=== PATIENT | female | born 1995 | race African-American/Black ===

== ENCOUNTER → 2020-08-07 | Outpatient (CLI) | payer SELFPAY ==
--- NOTE | 2020-08-07 15:40 | RADIOLOGY REPORT (SQ) ---
EXAM DESCRIPTION: U/S OB 14+ TRNABD 1GES W/O DOP IMAGES COMPLETED DATE/TIME: 08/07/2020 2:48 pm REASON FOR STUDY: ANATOMY US Z34.83 ENCOUNTER FOR SUPRVSN OF NORMAL , THIRD TRIM COMPARISON: None. TECHNIQUE: Static and Dynamic grayscale imaging performed of gravid uterus using transabdominal appr oach. Additional selected color Doppler and spectral images recorded. All stored on PACS. LIMITATIONS: None. FINDINGS: FETUSES SEEN:1 EGA: 29 weeks 4 days Calculated using BPD,FL,HC,AC documented on images. No discrepancy with clinica l dates. ANKUR: 10/19/2020 EFW: 1,303 grams PERCENTILE: 35 SHIRA: 15.4 PLACENTA: Anterior. GRADE: I PRESENTATION: Breech. ANATOMY: HEART RATE: 137 beats per minute. FOUR CHAMBER HEART: Visualized. THREE VESSEL CORD: Yes. CORD INSERTION: Visualized. KIDNEYS AND BLADDER: Visualized. Appear normal. STOMACH: Visualized. Appears normal. SPINE: Normal as visualized. BRAIN AND LATERAL VENTRICLES: Visualized. Appear normal. OTHER: No other significant finding. MATERNAL ADNEXA: Maternal ovaries not visualized. CERVICAL LENGTH: 2.9 cm. Closed. OTHER: No other significant finding. IMPRESSION: LIVING INTRAUTERINE . ESTIMATED GESTATIONAL AGE 29 weeks 4 days. NO VISUALIZED ANOMALIES. Trimester of : Third trimester - 28 weeks to delivery. TECHNICAL DOCUMENTATION: JOB ID: [id number] 2010 [email or web address]- All Rights Reserved Reading location - IP/workstation name: [email or web address]
== END ==
LOC: RAD 14:18
PROVIDERS: ATTEND Midwife
DX: Z34.83 Encounter for supervision of other normal pregnancy, third trimester (principal)
CPT/HCPCS: 76805

== ENCOUNTER 2020-09-14 11:18 | Outpatient (CLI) | payer MEDICAID ==
[2020-09-14 12:03] LABS: BACTERIA (WET MOUNT) 4+ BACTERIA SEEN; EPITHELIALS (WET MOUNT) 4+ EPITHELIALS SEEN; RBCS (WET MOUNT) FEW RBCS SEEN; T.VAGINALIS (WET MOUNT) NO TRICHOMONAS SEEN; WBCS (WET MOUNT) 3+ WBCS SEEN; YEAST (WET MOUNT) NO YEAST SEEN
[2020-09-14 12:14] LABS: APPEARANCE,URINE SLIGHTLY-CLOUDY; BILIRUBIN,URINE NEGATIVE (NEGATIVE); COLOR,URINE STRAW; GLUCOSE, URINE NEGATIVE (NEGATIVE); KETONES,URINE NEGATIVE (NEGATIVE); LEUKOCYTE ESTERASE,URINE MODERATE (NEGATIVE); NITRITE,URINE NEGATIVE (NEGATIVE); PROTEIN,URINE NEGATIVE (NEGATIVE); URINE SPECIFIC GRAVITY 1.009; UROBILINOGEN,URINE NEGATIVE mg/dL (<2.0)
[2020-09-14 12:31] LABS: URINE AMPHETAMINES SCREEN NEGATIVE; URINE BARBITURATES SCREEN NEGATIVE; URINE BENZODIAZEPINES SCREEN NEGATIVE; URINE COCAINE SCREEN NEGATIVE; URINE METHADONE SCREEN NEGATIVE; URINE PHENCYCLIDINE SCREEN NEGATIVE
--- NOTE | 2020-09-14 12:35 | RADIOLOGY REPORT (SQ) ---
EXAM DESCRIPTION: U/S OB LIMITED IMAGES COMPLETED DATE/TIME: 09/14/2020 12:13 pm REASON FOR STUDY: vaginal spotting, Fluid, pres, growth, placenta COMPARISON: None. TECHNIQUE: Limited transabdominal grayscale ultrasound for evaluation of specific requested obstetri scott parameters. LIMITATIONS: None. FINDINGS: EGA: 35 week 2 day. ANKUR: 10/17/2020. EFW: 2397 g. PERCENTILE: 31%. CERVICAL LENGTH: 2.5 cm. Closed. SHIRA: 22.1 cm. LVP: 8.2 cm. FHR: 127 beats per minute. PRESENTATION: Cephalic. PLACENTA: Anterior. ANATOMY: Not assessed OTHER: No other significant findings. IMPRESSION: LIMITED OBSTETRICAL ULTRASOUND WITH MEASURED PARAMETERS DELINEATED ABOVE. Trimester of : Third trimester - 28 weeks to delivery. TECHNICAL DOCUMENTATION: JOB ID: [id number] [employer]- All Rights Reserved Reading location - IP/workstation name: [email or web address]
[2020-09-14 12:39] LABS: URINE MARIJUANA (THC) SCREEN UNCONFIRMED POSITIVE
[2020-09-14] MEDS ORDERED: BETAMET ACET/BETAMET NA INJ 6 MG/1 ML ONE (13:21)
[2020-09-14] MEDS ORDERED: BETAMET ACET/BETAMET NA INJ 6 MG/1 ML IM ONE (13:22)
--- NOTE | 2020-09-14 13:31 | PDOC PROGRESS REPORT ---
Subjective Date:: 09/14/20 Subjective:: spotting once this am with wiping when she woke up, rare B-H ctx, no bleeding noted on pad, +FM, no LOF Reason For Visit: LABOR CHECK Physical Exam - Physical Exam Vital Signs: Intake & Output 09/13/20 09/14/20 09/15/20 06:59 06:59 06:59 Weight 62 kg General appearance: PRESENT: no acute distress, well-developed, well-nourished Head exam: PRESENT: atraumatic, normocephalic Respiratory exam: PRESENT: chest wall tenderness, symmetrical, unlabored Cardiovascular exam: PRESENT: RRR. ABSENT: diastolic murmur, rubs, systolic murmur Pulses: PRESENT: normal dorsalis pedis pul, +2 pedal pulses bilateral GI/Abdominal exam: PRESENT: normal bowel sounds, soft. ABSENT: distended, guarding, mass, organolmegaly, rebound, tenderness Rectal exam: PRESENT: deferred Extremities exam: PRESENT: full ROM. ABSENT: calf tenderness, clubbing, pedal edema Neurological exam: PRESENT: alert, awake, oriented to person, oriented to place, oriented to time, oriented to situation, CN II-XII grossly intact. ABSENT: motor sensory deficit Psychiatric exam: PRESENT: appropriate affect, normal mood. ABSENT: homicidal ideation, suicidal ideation Skin exam: PRESENT: dry, intact, warm. ABSENT: cyanosis, rash - Obstetrical Exam Effacement (%): 25 - posterior Station: -4 Tender: No Adhexa: normal Result Laboratory Results: 09/14/20 11:29 Urine Color STRAW Urine Appearance SLIGHTLY-CLOUDY Urine pH 7.0 Ur Specific [place] 1.009 Urine Protein NEGATIVE Urine Glucose (UA) NEGATIVE Urine Ketones NEGATIVE Urine Blood SMALL H Urine Nitrite NEGATIVE Ur Leukocyte Esterase MODERATE H Urine WBC (Auto) 8 Urine RBC (Auto) 13 Impressions: Obstetrics Ultrasound 09/14/20 11:28 IMPRESSION: LIMITED OBSTETRICAL ULTRASOUND WITH MEASURED PARAMETERS DELINEATED ABOVE. Trimester of : Third trimester - 28 weeks to delivery. Status: Imported from PACS Assessment & Plan - Diagnosis (1) History of delivery, currently in third trimester Is this a current diagnosis for this admission?: Yes Plan: cvx ft/th/hi/post/soft H/o 36ks then 32wks then 38wks delivery (38wks delivery was on eduin) She is followed by [facility] and has not been see olrna [facility] yet. She is not on ed[place] or Prometrium this She has not had an appt in 6 weeks Instructed to call thursday for TROB appt. Prometrium Rx given. Since h/o 2 babies and not on prometrium or eduin - will give steroids today and f/u tomorr for steroids. Wet prep neg US noted vertex and approp growth. Possible poly with SDP 8.2cm - f/u with [facility] next week. Denies SROM Reassuring FWB and not in labor. FKC and labor precautions reviewed. Pt instructed to return if spotting again. GC/CT negative Discharge to home with f/u in office next week. Repeat BMZ tomorrow (2) Cannabis abuse without complication Is this a current diagnosis for this admission?: Yes Plan: patient safety tech entered due to positive THC. Pt reports use of gummies. - Time Time Spent with patient: 15-24 minutes Smoking Cessation Education: 3 to 10 minutes Medications reviewed and adjusted accordingly: Yes Anticipated discharge: Home Anticipated DC Timeframe: Other - Once GC/CT returns. - Inpatient Certification Based on my medical assessment, after consideration of the patient's comorbidities, presenting symptoms, or acuity I expect that the services needed warrant INPATIENT care.: No I certify that my determination is in accordance with my understanding of Medicare's requirements for reasonable and necessary INPATIENT services [42 CFR 412.3e].: No Post Hospital Care: D/C Registered Nurse Step Down Documentation - Plan Summary Plan Summary: +THC
[2020-09-14 13:33] LABS: CHLAM PCR NOT DETECTED (NOT DETECT)
--- NOTE | 2020-09-14 13:35 | Non Stress Test Report ---
Non Stress Test Datetime Report Generated by CPN: 09/14/2020 13:35 DEMOGRAPHIC EGA NST: 35.3 INDICATION Indication for Study (NST) Other: vaginal pink discharge MONITORING Monitor Explained: Monitor Explained; Test Explained; Patient Verbalized Understanding Time on Monitor: 09/14/2020 12:19 NST INTERVENTIONS NST Interventions: PO Hydration; Reposition Patient Physician Notified NST: Dr. Garcia BABY A: [id number] BABY A Movement : Present Contraction Frequency : irregular FHR Baseline : 120 Accelerations : 15X15 Decelerations : None Variability : Moderate 6-25bpm NST Review: Meets Criteria for Reactive NST NST Review and Verified By : GERARD Kay Results: Reactive NST REPORT Report Trigger: Send Report
== END 2020-09-14 13:49 | disposition hospice, inpatient (51) ==
LOC: LC 11:18
PROVIDERS: ATTEND Student in an Organized Health Care Education/Training Program
DX: O47.1 False labor at or after 37 completed weeks of gestation (principal); O99.323 Drug use complicating pregnancy, third trimester; F12.10 Cannabis abuse, uncomplicated; O26.853 Spotting complicating pregnancy, third trimester; N89.8 Other specified noninflammatory disorders of vagina; Z3A.35 35 weeks gestation of pregnancy
CPT/HCPCS: 59025; 87086; 87210; 87088; 81001; 87081; 87186; 80307; 87491; 87591; 76815; G0480 ×2; J0702; 80349

== ENCOUNTER 2020-09-15 13:29 | Outpatient (CLI) | payer MEDICAID ==
[2020-09-15] MEDS ORDERED: BETAMET ACET/BETAMET NA INJ 6 MG/1 ML ONE (13:34)
[2020-09-15] MEDS ORDERED: BETAMET ACET/BETAMET NA INJ 6 MG/1 ML IM ONE (13:35)
== END 2020-09-15 14:35 | disposition home or self-care (01) ==
LOC: LC 13:29
PROVIDERS: ATTEND Obstetrics & Gynecology
DX: O47.03 False labor before 37 completed weeks of gestation, third trimester (principal); O99.891 Other specified diseases and conditions complicating pregnancy; N89.8 Other specified noninflammatory disorders of vagina; Z3A.35 35 weeks gestation of pregnancy
CPT/HCPCS: 59025; 96372; 86900; 86901; 36415; J0702

== ENCOUNTER 2020-09-16 03:45 | Outpatient (CLI) | payer MEDICAID ==
[2020-09-16 04:25] LABS: APPEARANCE,URINE CLEAR; BILIRUBIN,URINE NEGATIVE (NEGATIVE); COLOR,URINE STRAW; GLUCOSE, URINE NEGATIVE (NEGATIVE); KETONES,URINE NEGATIVE (NEGATIVE); LEUKOCYTE ESTERASE,URINE NEGATIVE (NEGATIVE); NITRITE,URINE NEGATIVE (NEGATIVE); PROTEIN,URINE NEGATIVE (NEGATIVE); URINE SPECIFIC GRAVITY 1.006; UROBILINOGEN,URINE NEGATIVE mg/dL (<2.0)
[2020-09-16 04:33] LABS: URINE AMPHETAMINES SCREEN NEGATIVE; URINE BARBITURATES SCREEN NEGATIVE; URINE BENZODIAZEPINES SCREEN NEGATIVE; URINE COCAINE SCREEN NEGATIVE; URINE METHADONE SCREEN NEGATIVE; URINE PHENCYCLIDINE SCREEN NEGATIVE
[2020-09-16 04:45] LABS: URINE MARIJUANA (THC) SCREEN UNCONFIRMED POSITIVE
--- NOTE | 2020-09-16 06:38 | Non Stress Test Report ---
Non Stress Test Datetime Report Generated by CPN: 09/16/2020 06:38 DEMOGRAPHIC EGA NST: 35.5 INDICATION Indication for Study (NST) Other: LC URINE RESULTS Urine Protein, NST: Negative Urine Ketones - NST: Negative Urine Glucose - NST: Negative Urine Blood - NST: Negative MONITORING Monitor Explained: Monitor Explained; Test Explained; Patient Verbalized Understanding Time on Monitor: 09/16/2020 05:30 Time off Monitor: 09/16/2020 06:15 NST Duration: 45 NST INTERVENTIONS NST Interventions: PO Hydration; Reposition Patient BABY A: [id number] BABY A Movement : Present Contraction Frequency : 3-8 FHR Baseline : 115 Accelerations : 15X15 Decelerations : None Variability : Moderate 6-25bpm NST Review: Meets Criteria for Reactive NST NST Review and Verified By : Corie Chandler RN NST Results: Reactive NST REPORT Report Trigger: Send Report
== END 2020-09-16 06:44 | disposition home or self-care (01) ==
LOC: LC 03:45
PROVIDERS: ATTEND Obstetrics & Gynecology
DX: O47.03 False labor before 37 completed weeks of gestation, third trimester (principal); Z3A.35 35 weeks gestation of pregnancy
CPT/HCPCS: 59025; 80307; 81001; 84112; 94760

== ENCOUNTER 2020-09-23 08:43 | Outpatient (CLI) | payer MEDICAID ==
[2020-09-23] MEDS ORDERED: DOCUSATE SODIUM 100 MG CAPSULE PO ONE (09:22)
[2020-09-23] MEDS ORDERED: RINGERS SOLUTION,LACTATED 1,000 ML IV PRN (09:22)
[2020-09-23] MEDS ORDERED: DOCUSATE SODIUM 100 MG CAPSULE ONE (09:24)
[2020-09-23 09:27] LABS: APPEARANCE,URINE CLOUDY; BILIRUBIN,URINE NEGATIVE (NEGATIVE); COLOR,URINE YELLOW; GLUCOSE, URINE NEGATIVE (NEGATIVE); KETONES,URINE NEGATIVE (NEGATIVE); LEUKOCYTE ESTERASE,URINE MODERATE (NEGATIVE); NITRITE,URINE NEGATIVE (NEGATIVE); PROTEIN,URINE >=500 mg/dL (NEGATIVE); URINE SPECIFIC GRAVITY 1.019; UROBILINOGEN,URINE NEGATIVE mg/dL (<2.0)
[2020-09-23 09:46] LABS: URINE AMPHETAMINES SCREEN NEGATIVE; URINE BARBITURATES SCREEN NEGATIVE; URINE BENZODIAZEPINES SCREEN NEGATIVE; URINE COCAINE SCREEN NEGATIVE; URINE METHADONE SCREEN NEGATIVE; URINE PHENCYCLIDINE SCREEN NEGATIVE
[2020-09-23 09:56] LABS: URINE MARIJUANA (THC) SCREEN UNCONFIRMED POSITIVE
[2020-09-23] MEDS ORDERED: CEFTRIAXONE INJ 1000 MG VIAL IV ONE (10:35)
[2020-09-23] MEDS ORDERED: HYDROXYZINE PAMOATE 50 MG CAPSULE PO ONE (10:37)
[2020-09-23] MEDS ORDERED: CEFTRIAXONE 1 GM/D5W RTU 1 GM/50 ML RTUPB IV ONE ×2 (10:40)
[2020-09-23] MEDS ORDERED: HYDROXYZINE PAMOATE 50 MG CAPSULE ONE (10:40)
[2020-09-23] MEDS ORDERED: NALBUPHINE HCL INJ 10 MG/1 ML AMPULE ONE (11:39)
--- NOTE | 2020-09-23 12:10 | Non Stress Test Report ---
Non Stress Test Datetime Report Generated by CPN: 09/23/2020 12:10 DEMOGRAPHIC EGA NST: 36.5 MONITORING Monitor Explained: Monitor Explained; Test Explained; Patient Verbalized Understanding Time on Monitor: 09/23/2020 08:56 Time off Monitor: 09/23/2020 12:08 NST Duration: 192 NST INTERVENTIONS NST Interventions: PO Hydration; Reposition Patient Physician Notified NST: Dr. James BABY A: [id number] BABY A Movement : Present Contraction Frequency : irregular FHR Baseline : 135 Accelerations : 15X15 Decelerations : None Variability : Moderate 6-25bpm NST Review: Meets Criteria for Reactive NST NST Review and Verified By : C. [place] RN NST Results: Reactive NST COMMENTS NST Comments: MD on unit NST REPORT Report Trigger: Send Report
--- NOTE | 2020-09-23 15:47 | RADIOLOGY REPORT (SQ) ---
EXAM DESCRIPTION: U/S OB LIMITED IMAGES COMPLETED DATE/TIME: 09/23/2020 1:45 pm REASON FOR STUDY: BPP BPP. 36 weeks 4 days gestation COMPARISON: 09/14/2020, 08/07/2020 TECHNIQUE: Limited corcoran-scale realtime and static images of the fetus to measure specified parameter s. LIMITATIONS: None. FINDINGS: HEART RATE: 132 beats per minute. SHIRA: 17.3 cm. MVP: 7 x 5 cm. BREATHING MOVEMENT: 2 points. MOVEMENT: 2 points. POSTURE AND TONE: 2 points. QUALITATIVE SHIRA: 2 points. OTHER: No other significant finding. IMPRESSION: BIOPHYSICAL PROFILE: 04/21. Trimester of : Third - 28 weeks to delivery COMMENT: BREATHING MOVEMENTS: 2 POINTS: PRESENT 0 POINTS: ABSENT MOTION: 2 POINTS: PRESENT 0 POINTS: ABSENT TONE: 2 POINTS: PRESENT 0 POINTS: ABSENT AMNIOTIC FLUID VOLUME: 2 POINTS: LARGEST POCKET GREATER THAN 2 CM DEPTH. 0 POINTS: NO POCKET OF 2 CM. TECHNICAL DOCUMENTATION: JOB ID: [id number] 2010 [employer]- All Rights Reserved Reading location - IP/workstation name: [email or web address]
== END 2020-09-23 15:26 | disposition home or self-care (01) ==
LOC: LC 08:43
PROVIDERS: ATTEND Obstetrics & Gynecology
DX: O47.03 False labor before 37 completed weeks of gestation, third trimester (principal); Z3A.36 36 weeks gestation of pregnancy
CPT/HCPCS: 59025; 94760; 87086; 81005; 87088; 80307; 76815; G0480 ×2; J3490 ×2; J2300; J0696; 80349; 87186